=== PATIENT | female | born 1995 ===

== ENCOUNTER 2023-06-02 05:25 | Day surgery (SDC) | payer OTHER ==
[2023-05-26 11:51] LABS: HEMOGLOBIN 14.9 g/dL (12.0-15.00); MEAN CELL VOLUME 90.2 fL (80.00-100.00); MEAN CORPUSCULAR HEMOGLOBIN 30.5 pg (27.00-32.0); MEAN CORPUSCULAR HGB CONC 33.8 g/dl (32.0-36.0); PLATELET COUNT 260 K/uL (150-450); RED BLOOD COUNT 4.87 M/uL (4.00-6.00); RED CELL DISTRIBUTION WIDTH 12.3 % (11.5-14.5)
[2023-05-26 11:57] LABS: URINE APPEARANCE Clear; URINE BILIRRUBIN Negative (NEGATIVE); URINE BLOOD Moderate; URINE COLOR Yellow; URINE GLUCOSE Negative (NEGATIVE); URINE LEUKOCYTE Negative; URINE NITRATE Negative; URINE PROTEIN Negative (NEGATIVE)
[2023-05-26 12:00] LABS: URINE BACTERIA 292.2 uL (0.0-1933); URINE EPITHELIAL CELLS 11.5 uL (0.0-38.8); URINE RBC 10.9 uL (0.0-20.8)
[2023-05-26 12:35] LABS: INR 1.01; PROTHROMBIN TIME 10.6 SECONDS (9.0-11.5)
[2023-05-26 12:49] LABS: ALBUMIN 4.3 gm/dL (3.4-5.0); BILIRUBIN TOTAL 0.48 mg/dL (0.3-1.2); CALCIUM 9.6 mg/dL (8.5-10.1); CREATININE SERUM 0.76 mg/dL (0.55-1.02); GFR 91.99; GLOBULINA 3.3 G/DL (2.4-3.5); POTASSIUM 4.01 mEq/L (3.5-5.1); TOTAL PROTEIN 7.6 gm/dL (6.4-8.2); TSH 1.41 uIU/mL (0.358-3.74)
[2023-06-02] MEDS ORDERED: CEFTRIAXONE SODIUM 2,000 MG VIAL ONE (06:20)
[2023-06-02] MEDS ORDERED: POVIDONE-IODINE 118 ML BOTT TOP ONE ×3 (07:09→08:15)
[2023-06-02] MEDS ORDERED: CEFTRIAXONE SODIUM 2,000 MG VIAL IV ONE (08:15)
[2023-06-02] MEDS ORDERED: MORPHINE SULFATE 4 MG/ML VIAL IV PRN (08:30)
[2023-06-02] MEDS ORDERED: PROMETHAZINE HCL 50 MG/ML AMPUL IM ONE (08:30)
[2023-06-02] MEDS ORDERED: NAPR500T14 PO (08:32)
[2023-06-02] MEDS ORDERED: MORGIDOX100 MG PO (08:32)
[2023-06-02] MEDS ORDERED: PROMETHAZINE HCL 50 MG/ML AMPUL ONE (12:24)
== END 2023-06-02 12:30 | disposition home or self-care (01) ==
LOC: CIR.AMB 05:25
PROVIDERS: ATTEND Obstetrics & Gynecology
DX: N84.0 Polyp of corpus uteri (principal); N93.9 Abnormal uterine and vaginal bleeding, unspecified; D25.0 Submucous leiomyoma of uterus; Z20.822 Contact with and (suspected) exposure to COVID-19